=== PATIENT | male | born 1985 | race Two or more races ===

== ENCOUNTER 2017-05-24 23:19 | Emergency (ER) | payer SELFPAY ==
[2017-05-24 23:36] VITALS: BP 125/76; BMI 29.8
[2017-05-25] MEDS ORDERED: TORADOL TAB PO ONE ×2 (00:38→00:42)
[2017-05-25] MEDS ORDERED: AMOXIL CAP 500 MG PO ONE ×2 (00:38→00:42)
--- NOTE | 2017-05-25 00:41 | DR.GENAD ---
HPI - PCP Primary Care Physician: - HPI Comment HPI Comment: LOWER LEFT 2ND MOLAR INFLAME. NO FEVER. - Complaint/Symptoms Chief Complaint Doctors Comments: TOOTHE ACHE TIMES 2 DAYS. Chief Complaint:: BAD TOOTH ACHE ON LEFT SIDE Self Treatment fo Chief Complaint: TYLENOL - Nurses notes reviewed Nurses Notes Review: Yes - Source History Provided: Patient - Mode of Arrival Mode of Arrival: Ambulatory - Timing Onset of Chief Complaint: 05/22/17 Came on: Suddenly - Duration Duration: Constant Duration: Days - Severity Severity: Moderate PMH - PMH Past Medical History: No Past Surgical History: Yes Past Surgical History Comment: SKIN GRAFT - Family History History of Family Medical Conditions: Yes Family Medical History: Diabetes Mellitus, Cancer, Hypertension Family Medical History Comment: DAD HAS LIVER PROBLEMS. MOM HAS SOME TYPE OF BLOOD INFECTION - Social History Does patient currently use any type of tobacco product: Yes Have you used tobacco products in the last 12 months: No Type of Tobacco Use: Cigarettes How many years tobacco product used: 15 Does any household member use tobacco: No Alcohol Use: Rarely Do you use any recreational Drugs:: No Lives With: Spouse Lives Where: Home - infectious screening In the last 2 months have you had wt loss of >10#?: NO Have you had fever, night sweats or hemotysis?: No Have you traveled outside the country in the last 6 months?: No Isolation: Standard ROS - Review of Systems Constitutional: negative: Chills, Fever, Weakness Eyes: No Symptoms Reported. negative: Eye Pain, Discharge ENTM: Nose Congestion, Throat Pain. negative: Ear Pain, Nose Discharge Respiratoy: negative: Short of Breath, Wheezing, Hemoptysis Gastrointestinal/Abdominal: No Symptoms Reported Genitourinary: No Symptoms Reported Neurological: No Symptoms Reported Musculoskeletal: Muscle Pain Integumentary: No Symptoms Reported Hematologic/Lymphatic: No Symptoms Reported Endocrine: No Symptoms Reported All Other Systems: Reviewed and Negative PE - Vital Signs Vitals: Temperature 99.1 F Pulse Rate 70 Respiratory Rate 16 Blood Pressure 125/76 O2 Sat by Pulse Oximetry 98 - General Limitations: No Limitations General Appearance: In No Apparent Distress - Head Head Exam: Normal Inspection - Eyes Eye exam: Normal Appearance - ENT ENT Exam: Normal External Ear Exam External Ear Exam: Normal External Inspection TM/Canal Exam: Bilateral Normal Nose Exam: Normal Nose Exam Mouth Exam: Other (RT 2ND MOLAR INFLAME, GUM SWOLLEN AND RED AND TENDER.) Throat Exam: Normal Inspection - Neck Neck Exam: Trachea Midline - Chest Chest Inspection: Symmetric Chest Wall Rise - Respiratory Respiratory Exam: Normal Lung Sounds Bilat Respiratory Exam: Bilateral Clear to Auscultation - Cardiovascular Cardiovascular Exam: Regular Rate, Normal Rhythm, Normal Heart Sounds - Abdominal Exam Abdominal Exam: Normal Bowel Sounds, Soft. negative: Tenderness - Extremities Extremities Exam: Normal Inspection - Back Back Exam: Normal Inspection - Neurologic Neurological Exam: Alert, Oriented X3 - Psychiatric Psychiatric Exam: Normal Affect, Normal Mood - Skin Skin Exam: Normal Color MDM - Additional Information Additional Information Obtained From: Family - Differential Diagnosis Differential Diagnosis: DENTAL PAIN, GINGIVITIS. Course - Treatment Treatment: SEE ORDERS. - Education/Counseling Education/Counseling: Patient, Family, Education Educated On: Diagnosis, Needs for Follow Up - Diagnosis Discharge Problem: Abscessed tooth, Gingivitis - Discharge Plan Disposition: HOME, SELF-CARE Condition: Stable Prescriptions: Amoxicillin [Amoxil 875 mg] 875 mg PO Q12H #20 tab Ibuprofen [MOTRIN TAB 800 MG *] 800 mg PO Q8H PRN #20 tab PRN Reason: Pain/Inflammation - Follow ups/Referrals Follow ups/Referrals: [facility],None [Primary Care Provider] - 3 days - Instructions Instructions: Gingivitis, [id number], Dental Abscess, [id number] Additional Instructions: RETURN TO ED IF WORSE.
== END 2017-05-25 01:00 | disposition home or self-care (01) ==
LOC: ER 23:19
DX: K04.7 Periapical abscess without sinus (principal); K05.10 Chronic gingivitis, plaque induced
CPT/HCPCS: 99282